=== PATIENT | male | born 1985 | race Caucasian/White ===

== ENCOUNTER 2019-05-14 23:45 | Emergency (ER) | payer SELFPAY ==
[2019-05-14] MEDS ORDERED: Bupivacaine 0.5% 10 ML VIAL ONE (23:50)
== END 2019-05-15 00:03 | disposition home or self-care (01) ==
LOC: BURERS 23:45
DX: K08.89 Other specified disorders of teeth and supporting structures (principal); F41.9 Anxiety disorder, unspecified; F31.9 Bipolar disorder, unspecified; F17.210 Nicotine dependence, cigarettes, uncomplicated
CPT/HCPCS: 99282; J3490

== ENCOUNTER 2020-02-19 01:11 | Emergency (ER) | payer SELFPAY ==
[2020-02-19] MEDS ORDERED: Ibuprofen 200 MG TAB ONE (01:36)
--- NOTE | 2020-02-19 09:44 | RAD ---
RIGHT HAND 3 VIEWS: Date: 02/19/2020 No fracture was seen. The first MCP joint and carpal bones all appeared intact as well. IMPRESSION: No acute findings. POS: HOME
== END 2020-02-19 01:42 | disposition home or self-care (01) ==
LOC: BURERS 01:11
DX: S60.211A Contusion of right wrist, initial encounter (principal); Z21 Asymptomatic human immunodeficiency virus [HIV] infection status; F41.9 Anxiety disorder, unspecified; F31.9 Bipolar disorder, unspecified; F17.210 Nicotine dependence, cigarettes, uncomplicated; Z79.899 Other long term (current) drug therapy; W19.XXXA Unspecified fall, initial encounter

== ENCOUNTER 2020-05-18 17:46 | Emergency (ER) | payer SELFPAY ==
[2020-05-19 05:28] LABS: SARS-CoV-2 PCR by NAA Not Detected (NotDetected)
== END 2020-05-18 18:15 | disposition home or self-care (01) ==
LOC: BURERS 17:46
DX: R05 Cough (principal); Z20.822 Contact with and (suspected) exposure to COVID-19; F17.210 Nicotine dependence, cigarettes, uncomplicated; B20 Human immunodeficiency virus [HIV] disease; Z79.899 Other long term (current) drug therapy
CPT/HCPCS: 87635; 99283; U0003; U0005

== ENCOUNTER 2022-02-28 19:05 | Emergency (ER) | payer SELFPAY ==
[2022-02-28 20:20] LABS: Hemoglobin 13.7 g/dL (14.0-18.0); Mean Corpuscular HGB CONC 33.7 g/dL (32.0-36.0); Mean Corpuscular Hemoglobin 34.4 pg (27.0-31.0); Mean Platelet Volume 6.7 fL (7.4-10.4); Platelet Count 359 thou/uL (130-400); RBC Distribution Width 12.1 % (11.5-14.5); Red Blood Cell (RBC) Count 3.98 mill/uL (4.70-6.10); White Blood Cell (WBC) Count 12.4 thou/uL (4.8-10.8)
[2022-02-28 20:26] LABS: Anion Gap 10 mmol/L (10-20); BUN (Urea Nitrogen) 13 mg/dL (8.9-20.6); Calc. Creatinine Clearance 0 mL/min (70-130); Calcium 8.7 mg/dL (7.8-10.44); Carbon Dioxide 25 mmol/L (22-29); Chloride 107 mmol/L (98-107); Estimated GFR 103; Glucose 104 mg/dL (70-105); Sodium 138 mmol/L (136-145)
[2022-02-28] MEDS ORDERED: cefTRIAXone\\ROCEPHIN 2 GM VIAL ONE (20:49)
[2022-02-28] MEDS ORDERED: Sodium Chloride 0.9% 100 ML ONE (20:49)
[2022-02-28 21:00] LABS: Lymphocytes 14 % (21-51); MDiff Complete? YES; Monocytes 11 % (0-10); Neutrophil 75 % (42-75); Platelet Morphology Comment Appears Adequate; RBC Morphology Normal
[2022-02-28 22:21] LABS: SARS-CoV-2 NAA Rapid Test Not Detected (NotDetected)
== END 2022-02-28 22:30 | disposition short-term general hospital (02) ==
LOC: BURERS 19:05
DX: A41.9 Sepsis, unspecified organism (principal); Z21 Asymptomatic human immunodeficiency virus [HIV] infection status; F17.210 Nicotine dependence, cigarettes, uncomplicated; Z20.822 Contact with and (suspected) exposure to COVID-19; Z79.899 Other long term (current) drug therapy
CPT/HCPCS: 36415; 71046; 80048; 83605; 85025; 87040; 87804; 96365; 96368; J0696; J3370; J3490; U0002

== ENCOUNTER 2022-03-09 17:25 | Emergency (ER) | payer SELFPAY | END 2022-03-09 18:18 | disposition home or self-care (01) | LOC: BURERS 17:25 | DX: S51.812A Laceration without foreign body of left forearm, initial encounter (principal); R53.83 Other fatigue; Z21 Asymptomatic human immunodeficiency virus [HIV] infection status; F17.210 Nicotine dependence, cigarettes, uncomplicated; X78.1XXA Intentional self-harm by knife, initial encounter | CPT/HCPCS: 99281 ==

== ENCOUNTER 2022-04-03 13:51 | Emergency (ER) | payer SELFPAY | END 2022-04-03 14:44 | disposition home or self-care (01) | LOC: BURERS 13:51 | DX: S60.221A Contusion of right hand, initial encounter (principal); W22.01XA Walked into wall, initial encounter ==

== ENCOUNTER 2022-05-13 20:49 | Emergency (ER) | payer SELFPAY ==
[2022-05-13 21:36] LABS: #Basophils 0.2 thou/uL (0.0-0.2); #Eosinphils 0.2 thou/uL (0.0-0.7); #Lymphocytes 3.2 thou/uL (1.20-3.40); #Monocytes 1.7 thou/uL (0.11-0.59); #Neutrophils 11.6 thou/uL (1.40-6.50); %Basophils 1.2 % (0.0-1.0); %Eosinophils 1.4 % (0.0-10.0); %Lymphocytes 18.8 % (21.0-51.0); %Monocytes 9.9 % (0.0-10.0); %Neutrophils 68.6 % (42.0-75.0); Hemoglobin 15.9 g/dL (14.0-18.0); Mean Corpuscular HGB CONC 34.6 g/dL (32.0-36.0); Mean Corpuscular Hemoglobin 33.1 pg (27.0-31.0); Mean Corpuscular Volume 95.6 fl (78.0-98.0); Mean Platelet Volume 6.9 fL (7.4-10.4); Platelet Count 430 10x3/uL (130-400); RBC Distribution Width 12.4 % (11.5-14.5); Red Blood Cell (RBC) Count 4.79 mill/uL (4.70-6.10); White Blood Cell (WBC) Count 16.9 10x3/uL (4.8-10.8)
[2022-05-13 21:40] LABS: ALT (SGPT) 25 U/L (8-55); AST (SGOT) 21 U/L (5-34); Albumin 4.6 g/dL (3.5-5.0); Alkaline Phosphatase 58 U/L (40-110); Anion Gap 15 mmol/L (10-20); BUN (Urea Nitrogen) 18 mg/dL (8.9-20.6); Bilirubin, Total 0.9 mg/dL (0.2-1.2); Calc. Creatinine Clearance 0 mL/min (70-130); Calcium 9.6 mg/dL (7.8-10.44); Carbon Dioxide 24 mmol/L (22-29); Chloride 101 mmol/L (98-107); Estimated GFR 80; Globulin 3.7 g/dL (2.4-3.5); Glucose 109 mg/dL (70-105); Lipase 11 U/L (8-78); Magnesium 2.3 mg/dL (1.6-2.6); Potassium 3.8 mmol/L (3.5-5.1); Protein, Total 8.3 g/dL (6.0-8.3); Sodium 136 mmol/L (136-145)
[2022-05-13 22:02] LABS: SARS-CoV-2 NAA Rapid Test Not Detected (NotDetected)
[2022-05-13 22:56] LABS: Bilirubin Negative (Negative); Blood, Urine Negative (Negative); Clarity Clear (Clear); Glucose, Urine (Dipstick) Negative (Negative); Ketone, Urine Trace mg/dL (Negative); Leukocyte Trace (Negative); Nitrite Negative (Negative); Protein, Urine (Dipstick) Negative (Neg-Trace); Specific Gravity, Urine 1.025 (1.005-1.030); Urobilinogen 0.2 mg/dL (Less than 2)
[2022-05-13 22:57] LABS: Bacteria/HPF None Seen HPF (None Seen); Mucous/LPF Rare LPF (<2+); RBC/HPF None Seen HPF (0-3); Squamous Epithelial None Seen HPF (0-3); WBC/HPF 0-3 HPF (0-3)
[2022-05-13 23:07] LABS: Amphetamine Detected (NotDetected); Barbiturates Screen Not Detected (NotDetected); Benzodiazepine Screen Not Detected (NotDetected); Cocaine Metabolite Screen Not Detected (NotDetected); Medtox Control Line Valid? VALID (VALID); Methadone Not Detected (NotDetected); Methamphetamine Detected (NotDetected); Opiate Screen Not Detected (NotDetected); Oxycodone Screen Not Detected (NotDetected); Phencyclidine (PCP) Not Detected (NotDetected); THC/Cannabinoid Screen Detected (NotDetected); Tricyclic Screen Not Detected (NotDetected)
== END 2022-05-13 23:31 | disposition home or self-care (01) ==
LOC: BURERS 20:49
DX: B20 Human immunodeficiency virus [HIV] disease (principal); D72.829 Elevated white blood cell count, unspecified; F17.210 Nicotine dependence, cigarettes, uncomplicated; Z20.822 Contact with and (suspected) exposure to COVID-19
CPT/HCPCS: 71045; 80053; 80306; 81003; 81015; 83605; 83690; 83735; 85025; 87040; 87804; U0002

== ENCOUNTER 2022-05-30 00:55 | Emergency (ER) | payer SELFPAY ==
[2022-05-30] MEDS ORDERED: predniSONE 20 MG TAB ONE (01:38)
== END 2022-05-30 01:43 | disposition home or self-care (01) ==
LOC: BURERS 00:55
DX: S51.812A Laceration without foreign body of left forearm, initial encounter (principal); J06.9 Acute upper respiratory infection, unspecified; X83.8XXA Intentional self-harm by other specified means, initial encounter
CPT/HCPCS: 99283; J7512

== ENCOUNTER 2022-06-05 16:33 | Emergency (ER) | payer BC, SELFPAY ==
[2022-06-05] MEDS ORDERED: Bacitracin 1 PK ONE (16:44)
== END 2022-06-05 17:09 | disposition home or self-care (01) ==
LOC: BURERS 16:33
DX: L03.114 Cellulitis of left upper limb (principal); F17.210 Nicotine dependence, cigarettes, uncomplicated
CPT/HCPCS: 99283

== ENCOUNTER 2022-07-22 22:48 | Emergency (ER) | payer BC ==
[2022-07-22 23:46] LABS: #Basophils 0.2 thou/uL (0.0-0.2); #Eosinphils 0.2 thou/uL (0.0-0.7); #Lymphocytes 3.1 thou/uL (1.20-3.40); #Monocytes 1.5 thou/uL (0.11-0.59); #Neutrophils 9.9 thou/uL (1.40-6.50); %Basophils 1.5 % (0.0-1.0); %Eosinophils 1.4 % (0.0-10.0); %Lymphocytes 20.9 % (21.0-51.0); %Monocytes 9.9 % (0.0-10.0); %Neutrophils 66.3 % (42.0-75.0); Hemoglobin 17.7 g/dL (14.0-18.0); Mean Corpuscular HGB CONC 34.2 g/dL (32.0-36.0); Mean Corpuscular Hemoglobin 33.5 pg (27.0-31.0); Mean Corpuscular Volume 97.9 fl (78.0-98.0); Mean Platelet Volume 6.2 fL (7.4-10.4); Platelet Count 396 10x3/uL (130-400); RBC Distribution Width 11.4 % (11.5-14.5); Red Blood Cell (RBC) Count 5.27 mill/uL (4.70-6.10)
[2022-07-22 23:57] LABS: Acetaminophen Less than 10.0 mcg/mL (10.0-30.0); Alcohol Less than 10 mg/dL (Less than 10); Salicylate Less than 8.0 mg/dL (15.0-30.0)
[2022-07-22 23:59] LABS: ALT (SGPT) 21 U/L (8-55); AST (SGOT) 17 U/L (5-34); Albumin 4.8 g/dL (3.5-5.0); Alkaline Phosphatase 57 U/L (40-110); Anion Gap 18 mmol/L (10-20); BUN (Urea Nitrogen) 18 mg/dL (8.9-20.6); Bilirubin, Total 0.7 mg/dL (0.2-1.2); Calc. Creatinine Clearance 0 mL/min (70-130); Calcium 10.1 mg/dL (7.8-10.44); Carbon Dioxide 21 mmol/L (22-29); Chloride 104 mmol/L (98-107); Estimated GFR 72; Globulin 3.6 g/dL (2.4-3.5); Glucose 100 mg/dL (70-105); Protein, Total 8.4 g/dL (6.0-8.3); Sodium 139 mmol/L (136-145)
== END 2022-07-23 01:43 | disposition home or self-care (01) ==
LOC: BURERS 22:48
DX: S01.412A Laceration without foreign body of left cheek and temporomandibular area, initial encounter (principal); S50.812A Abrasion of left forearm, initial encounter; F32.A Depression, unspecified; X78.1XXA Intentional self-harm by knife, initial encounter
CPT/HCPCS: 12001; 12011; 80053; 80307; 85025; 93005

== ENCOUNTER 2023-12-30 13:19 | Emergency (ER) | payer BC, OTHER | END 2023-12-30 13:47 | disposition home or self-care (01) | LOC: BURERS 13:19 | DX: R05.9 Cough, unspecified (principal); B20 Human immunodeficiency virus [HIV] disease; Z86.59 Personal history of other mental and behavioral disorders; F17.210 Nicotine dependence, cigarettes, uncomplicated | CPT/HCPCS: 99283 ==

== ENCOUNTER 2024-12-24 17:15 | Emergency (ER) | payer OTHER ==
[2024-12-24] MEDS ORDERED: Lidocaine 1% PF 5 ML VIAL ONE (17:35)
[2024-12-24] MEDS ORDERED: Bacitracin 1 PK ONE (17:35)
[2024-12-24 17:59] LABS: Acetaminophen Less than 10 mcg/mL (Less than 10); Salicylate Less than 8.0 mg/dL (Less than 8.0)
[2024-12-24 18:01] LABS: #Basophils 0.3 thou/uL (0.0-0.2); #Eosinophils 0.2 thou/uL (0.0-0.7); #Lymphocytes 2.1 thou/uL (1.20-3.40); #Monocytes 0.7 thou/uL (0.11-0.59); #Neutrophils 7.9 thou/uL (1.40-6.50); %Basophils 2.6 % (0.0-1.0); %Eosinophils 2.1 % (0.0-10.0); %Lymphocytes 18.8 % (21.0-51.0); %Monocytes 6.2 % (0.0-10.0); %Neutrophils 70.3 % (42.0-75.0); Hematocrit 35.6 % (42.0-52.0); Hemoglobin 12.9 g/dL (14.0-18.0); Mean Corpuscular Hemoglobin 32.8 pg (27.0-31.0); Mean Corpuscular Volume 90.9 fl (78.0-98.0); Platelet Count 387 10x3/uL (130-400); Red Blood Cell (RBC) Count 3.92 mill/uL (4.70-6.10); White Blood Cell (WBC) Count 11.2 10x3/uL (4.8-10.8)
[2024-12-24 18:07] LABS: ALT (SGPT) 36 U/L (Less than 45); AST (SGOT) 58 U/L (11-34); Albumin 4.3 g/dL (3.1-4.5); Alkaline Phosphatase 49 U/L (40-110); Anion Gap 16 mmol/L (10-20); BUN (Urea Nitrogen) 20 mg/dL (8.9-20.6); Bilirubin, Total 1.2 mg/dL (0.3-1.2); Calc. Creatinine Clearance 0 mL/min (70-130); Calcium 8.8 mg/dL (7.8-10.44); Carbon Dioxide 20 mmol/L (22-29); Chloride 105 mmol/L (98-107); Globulin 3.0 g/dL (2.4-3.5); Glucose 123 mg/dL (70-105); Potassium 3.6 mmol/L (3.5-5.1); Sodium 137 mmol/L (136-145)
[2024-12-24 18:34] LABS: Glucose, Urine (Dipstick) Negative (Negative); Leukocyte Negative (Negative); Protein, Urine (Dipstick) 30 mg/dL (Neg-Trace); Specific Gravity, Urine Greater/Equal 1.030 (1.005-1.030)
[2024-12-24 18:43] LABS: Cocaine Metabolite Screen Negative (Negative); THC/Cannabinoid Screen PRELIM POSITIVE (Negative); Tricyclic Screen Negative (Negative)
[2024-12-24 18:46] LABS: CAUTI Indications for Culture Immunosuppressed; RBC/HPF None Seen HPF (0-3); WBC/HPF 0-3 HPF (0-3)
[2024-12-24 18:47] LABS: Bacteria/HPF Rare-Few HPF (None Seen); Mucous/LPF Few LPF (<2+)
[2024-12-24 18:49] LABS: Urine Culture Reflex Yes Yes
== END 2024-12-24 19:07 | disposition home or self-care (01) ==
LOC: BURERS 17:15
DX: S61.411A Laceration without foreign body of right hand, initial encounter (principal); I10 Essential (primary) hypertension; F15.10 Other stimulant abuse, uncomplicated; F17.210 Nicotine dependence, cigarettes, uncomplicated; W22.8XXA Striking against or struck by other objects, initial encounter
CPT/HCPCS: 12001; 12042; 36415; 80053; 80306; 80307; 81001; 85025; 87086

== ENCOUNTER 2025-01-01 13:11 | Emergency (ER) | payer OTHER | END 2025-01-01 13:51 | disposition home or self-care (01) | LOC: BURERS 13:11 | DX: L03.113 Cellulitis of right upper limb (principal); S61.411D Laceration without foreign body of right hand, subsequent encounter; Z76.0 Encounter for issue of repeat prescription; B20 Human immunodeficiency virus [HIV] disease; F17.210 Nicotine dependence, cigarettes, uncomplicated; X58.XXXD Exposure to other specified factors, subsequent encounter | CPT/HCPCS: 99283 ==

== ENCOUNTER 2025-03-09 23:47 | Emergency (ER) | payer OTHER | END 2025-03-10 00:40 | disposition home or self-care (01) | LOC: BURERS 23:47 | DX: K04.7 Periapical abscess without sinus (principal); K02.9 Dental caries, unspecified; B20 Human immunodeficiency virus [HIV] disease; F17.210 Nicotine dependence, cigarettes, uncomplicated | CPT/HCPCS: 99283 ==